=== PATIENT | female | born 1990 | race Two or more races ===

== ENCOUNTER 2024-06-10 11:39 | Emergency (ER) | payer OTHER ==
[2024-06-10 12:19] LABS: Urine Bacteria None Seen /hpf (None Seen)
[2024-06-10 12:39] LABS: Urine Blood 3+ /uL (Negative); Urine Clarity Turbid (Clear); Urine Color Yellow (Yellow); Urine Mucus FEW (None Seen); Urine Protein, UAD TRACE (Negative); Urine Specific Gravity 1.031 (1.001-1.035); Urine Urobilinogen Normal (Negative); Urine WBC 7 /hpf (0 - 5)
[2024-06-10 12:42] LABS: Basophils # (auto) 0.1 10 ^3/uL (0-0.2); Basophils % (auto) 0.9 % (0.0-2.0); Eosinophils # (auto) 0.3 10 ^3/uL (0-0.8); Eosinophils % (auto) 3.7 % (0.0-7.0); Hematocrit 44.9 % (36.0-46.0); Hemoglobin 15.2 g/dL (12.2-16.2); Lymphocytes # (auto) 2.7 10 ^3/uL (0.4-5.4); Lymphocytes % (auto) 33.2 % (10.0-50.0); Mean Corpuscular Hgb Conc. 33.7 g/dL (32.0-36.0); Mean Corpuscular Volume 91.9 fL (80.0-100.0); Monocytes # (auto) 0.5 10 ^3/uL (0-1.3); Monocytes % (auto) 6.3 % (0.0-12.0); Neutrophils # (auto) 4.5 10 ^3/uL (1.6-8.6); Neutrophils % (auto) 55.9 % (37.0-80.0); Nucleated Red Blood Cells % 0.1 %; Platelet Count (auto) 264 10^3/uL (140-450); Red Blood Cells 4.89 10^6/uL (4.0-5.20); Red Cell Distribution Width 13.1 % (11.8-14.3); White Blood Cell 8.1 10^3/uL (4.4-10.8)
[2024-06-10 12:53] LABS: Sodium 142 mmol/L (136-145)
[2024-06-10 12:54] LABS: Anion Gap 8 (5-15); Carbon Dioxide 27 mmol/L (20-31)
[2024-06-10 12:55] LABS: Calcium 10.2 mg/dL (8.7-10.4)
[2024-06-10 12:59] LABS: BUN/Creatinine Ratio 9.5 (10.0-20.0); Glucose 94 mg/dL (74-106)
[2024-06-10 13:00] LABS: Chloride 107 mmol/L (98-107)
[2024-06-10 13:01] LABS: Blood Urea Nitrogen 9 mg/dL (9-23)
[2024-06-10 13:13] LABS: INR 1.03 (0.9-1.15); Partial Thromboplastin Time 27.3 SEC (24.5-34.5); Prothrombin Time 10.9 sec (9.3-11.8)
--- NOTE | 2024-06-10 14:06 | DVH ---
OB ULTRASOUND <14 WEEKS: HISTORY: vb TECHNIQUE: Multiple real-time grayscale sonographic images of the pelvis with duplex Doppler color f low, spectral and M-mode analysis. TRANSDUCERS: Transabdominal and transvaginal FINDINGS: The uterus measures 8.83 x 4.48 by 4.06 cm. Endometrial canal measures 4.1 mm there is fluid in the cul-de-sac. Right ovary measures 3.5 x 2.13 x 2.4 cm. with normal Doppler color flow. Right ovarian volume is 9.3 8 cc Left ovary has been surgically removed. IMPRESSION: 1. No IUP noted at this time. 2. Right ovary appears normal 3. Left ovary is surgically removed.
--- NOTE | 2024-06-10 15:32 | ED.PDOC ---
History of Present Illness HPI Comments 34-year-old female with a history of hypertension, anxiety, and obesity presents to the ED with complaint of abnormal vaginal bleeding and nonradiating, suprapubic abdominal pain for the past 11 days, today. Patient reports sudden and unprovoked onset of symptoms following her last normal menstrual cycle, wh ich ended 1 week ago. She describes pain as sharp in quality. Patient reports possible . She denies having any nausea, vomiting, urinary symptoms, weakness, lightheadedness, or other associated symptoms or modifiers at this time. Chief Complaint: Vaginal Bleed Time Seen by MD: 15:15 Reviewed Notes: Nurses Notes, Medications, Allergies Allergies: Coded Allergies: NO KNOWN ALLERGIES (Unverified , 06/10/24) Information Source: Patient Mode of Arrival: Ambulatory Severity: Moderate Timing: Days Duration: Since onset Prehospital treatment: None Past Medical History PAST MEDICAL HISTORY: Anxiety, HTN Past Medical History (Other): obesity Surgical History (Other): Left oophorectomy [employer] History: Ovarian Cysts Family History Family History: Unknown Social History Smoker: Non-Smoker Alcohol: Denies ETOH Use Drugs: Denies Drug Use Lives In: Home Gastrointestinal: reports: abdominal pain Genitourinary: reports: abnormal vagina bleeding All Other Systems: Reviewed and Negative (negative unless otherwise stated above or in HPI) Physical Exam General Appearance: No Apparent Distress HEENT: Other (Unremarkable) Neck: Full Range of Motion, Normal Inspection Respiratory: Lungs Clear, No Accessory Muscle Use, No Respiratory Distress, Normal Breath Sounds Cardiovascular: No Edema, No JVD, Regular Rate/Rhythm Breast Exam: Deferred Gastrointestinal: Soft, Suprapubic, Tenderness Genitalia: Deferred Pelvic: Deferred Rectal: Deferred Extremities: Normal inspection, Normal range of motion, Non-tender, No pedal edema Neurologic: Alert, Normal Affect, Normal Mood, Other (Ambulatory without difficulty. No gross focal deficit.) Cerebellar Function: NOT DONE Reflexes: NOT DONE Skin: Dry, Normal Color, Warm Lymphatic: NOT DONE Was a procedure done? Was a procedure done?: No Differential Dx Considerations may include: , menorrhagia, dysmenorrhea, anemia, miscarriage, ectopic , among others X-Ray, Labs, Meds, VS Vital Signs Date Time Temp Pulse Resp B/P (MAP) Pulse Ox O2 Delivery O2 Flow Rate FiO2 06/10/24 15:55 76 17 98 Room Air 06/10/24 15:55 98.1 76 17 131/75 (93) 98 98.1 Lab Test 06/10/24 12:15 06/10/24 11:59 Range/Units White Blood Count 8.1 4.4-10.8 10^3/uL Red Blood Count 4.89 4.0-5.20 10^6/uL Hemoglobin 15.2 12.2-16.2 g/dL Hematocrit 44.9 36.0-46.0 % Mean Corpuscular Volume 91.9 80.0-100.0 fL Mean Corpuscular Hemoglobin 31.0 28.0-32.0 pg Mean Corpuscular Hemoglobin Concent 33.7 32.0-36.0 g/dL Red Cell Distribution Width 13.1 11.8-14.3 % Platelet Count 264 140-450 10^3/uL Mean Platelet Volume 8.1 6.9-10.8 fL Neutrophils (%) (Auto) 55.9 37.0-80.0 % Lymphocytes (%) (Auto) 33.2 10.0-50.0 % Monocytes (%) (Auto) 6.3 0.0-12.0 % Eosinophils (%) (Auto) 3.7 0.0-7.0 % Basophils (%) (Auto) 0.9 0.0-2.0 % Neutrophils # (Auto) 4.5 1.6-8.6 10 ^3/uL Lymphocytes # (Auto) 2.7 0.4-5.4 10 ^3/uL Monocytes # (Auto) 0.5 0-1.3 10 ^3/uL Eosinophils # (Auto) 0.3 0-0.8 10 ^3/uL Basophils # (Auto) 0.1 0-0.2 10 ^3/uL Nucleated Red Blood Cells 0.1 % Prothrombin Time 10.9 9.3-11.8 sec Prothrombin Time INR 1.03 0.9-1.15 Activated Partial Thromboplast Time 27.3 24.5-34.5 SEC Sodium Level 142 136-145 mmol/L Potassium Level 4.0 3.5-5.1 mmol/L Chloride Level 107 98-107 mmol/L Carbon Dioxide Level 27 20-31 mmol/L Anion Gap 8 5-15 Blood Urea Nitrogen 9 9-23 mg/dL Creatinine 0.95 0.550-1.02 mg/dL Glomerular Filtration Rate Calc 80 >90 mL/min BUN/Creatinine Ratio 9.5 L 10.0-20.0 Serum Glucose 94 74-106 mg/dL Calcium Level 10.2 8.7-10.4 mg/dL Beta HCG, Quantitative 17.5 H 1.5-4.2 mIU/mL Urine Color Yellow Yellow Urine Clarity Turbid H Clear Urine pH 6.0 5.0-9.0 Urine Specific [place] 1.031 1.001-1.035 Urine Protein Trace H Negative Urine Ketones Negative Negative Urine Blood 3+ H Negative /uL Urine Nitrite Negative Negative Urine Bilirubin Negative Negative Urine Urobilinogen Normal Negative mg/dL Urine Leukocyte Esterase Negative Negative /uL Urine RBC 4 0 - 4 /hpf Urine WBC 7 0 - 5 /hpf Urine Squamous Epithelial Cells Few <5 /hpf Urine Bacteria None seen None Seen /hpf Urine Mucus Few None Seen Urine Glucose Normal Normal mg/dL [place] [address] Ph: [phone] DIAGNOSTIC IMAGING Diagnostic Imaging Report : [id number] Signed PATIENT: YASEMIN DRAKE ACCT: [id number] UNIT: [id number] : 1990 LOC: ER ROOM / BED: / AGE / SEX: 34 / F ADM STATUS: REG ER SERVICE 1219 ORDERING PHYSICIAN: CHUCKY GIRALDO MD PROCEDURE(s): OB4US - OB ULTRASOUND COMP LESS 14WKS REASON: vb ORDER NUMBER(s): [id number], ACCESSION NUMBER(s): [id number] OB ULTRASOUND <14 WEEKS: HISTORY: vb TECHNIQUE: Multiple real-time grayscale sonographic images of the pelvis with duplex Doppler color flow, spectral and M-mode analysis. TRANSDUCERS: Transabdominal and transvaginal FINDINGS: The uterus measures 8.83 x 4.48 by 4.06 cm. Endometrial canal measures 4.1 mm there is fluid in the cul-de-sac. Right ovary measures 3.5 x 2.13 x 2.4 cm. with normal Doppler color flow. Right ovarian volume is 9.38 cc Left ovary has been surgically removed. IMPRESSION: 1. No IUP noted at this time. 2. Right ovary appears normal 3. Left ovary is surgically removed. ATED BY: WILBERT VASQUEZ Jr., DO DICTATED DATE/TIME: 06/10/241402 SIGNED BY: WILBERT VASQUEZ Jr., SIGNED DATE/TIME: 06/10/241402 CC: X-Ray, Labs, Meds, VS Comment 34-year-old female with history of hypertension, ovarian cysts and left oophorectomy complaining of suprapubic pain and vaginal bleeding for the last 11 days Exam remarkable for suprapubic tenderness Ob ultrasound: IMPRESSION: 1. No IUP noted at this time. 2. Right ovary appears normal 3. Left ovary is surgically removed. CBC, basic metabolic panel, coagulation panel and UA unremarkable for any abnormality of acute significance HCG 17.5 On re-evaluation, patient is well-appearing, declines any pain medication, appears hemodynamically stable. Patient advised regarding workup findings, my impression, treatment plan and follow up recommendations, specifically to follow up with her OBGYN within the next 2-3 days for repeat serum quantitative hCG and repeat ultrasound. She expressed understanding and agreed. Findings likely reflect recent miscarriage, however could reflect early normal with bleeding. Ectopic cannot be ruled out. Time of 1ST Reevaluation: 15:45 Reevaluation 1ST: Unchanged Patient Education/Counseling: Diagnosis, Treatment Family Education/Counseling: No Family Present Additional Information The following tests were ordered, and results were reviewed by me: urine test, Beta Quant, UA, PTPTT, BMP, CBC, OB US Additional information was gathered from interviewing the following independent historians: spouse I reviewed and agreed with the following test results read by other providers: OB US I discussed treatments and results with medical personnel and: spouse Departure 1 Departure Time of Disposition: 15:41 Impression: Primary Impression: Vaginal bleeding affecting early Disposition: 01 HOME / SELF CARE / HOMELESS Condition: Stable Additional Instructions: Your blood tests were unremarkable. Your serum quantitative hCG ( hormone) was 17.5 mIU/mL. Your ultrasound did not show a inside the uterus or any other acute abnormality. The report is below. This likely reflects a recent miscarriage, however could reflect an early normal with bleeding or a outside the uterus (ectopic ). Follow up with your OBGYN in 3 days to 1 week for repeat serum quantitative hCG and repeat ultrasound. Take [id number] Tylenol as needed for pain. [facility] [address] [facility] [address] Ph: [phone] DIAGNOSTIC IMAGING Diagnostic Imaging Report : [id number] Signed PATIENT: YASEMIN DRAKE ACCT: [id number] UNIT: [id number] : 1990 LOC: ER ROOM / BED: / AGE / SEX: 34 / F ADM STATUS: REG ER SERVICE 1219 ORDERING PHYSICIAN: CHUCKY GIRALDO MD PROCEDURE(s): OB4US - OB ULTRASOUND COMP LESS 14WKS REASON: vb ORDER NUMBER(s): [id number], ACCESSION NUMBER(s): [id number] OB ULTRASOUND <14 WEEKS: HISTORY: vb TECHNIQUE: Multiple real-time grayscale sonographic images of the pelvis with duplex Doppler color flow, spectral and M-mode analysis. TRANSDUCERS: Transabdominal and transvaginal FINDINGS: The uterus measures 8.83 x 4.48 by 4.06 cm. Endometrial canal measures 4.1 mm there is fluid in the cul-de-sac. Right ovary measures 3.5 x 2.13 x 2.4 cm. with normal Doppler color flow. Right ovarian volume is 9.38 cc Left ovary has been surgically removed. IMPRESSION: 1. No IUP noted at this time. 2. Right ovary appears normal 3. Left ovary is surgically removed. ATED BY: WILBERT VASQUEZ Jr. DO DICTATED DATE/TIME: 06/10/24 1403 Discharged With: Spouse Critical Care Note Critical Care Time?: No Stability Stability form required: No Heart Score Heart Score: Heart Score Response (Comments) Value History N/A 0 EKG N/A 0 Age N/A 0 Risk Factors N/A 0 Troponin N/A 0 Total 0 I personally scribed for CHUCKY GIRALDO MD ([email or web address]) on 06/10/24 at 15:32. Electronically submitted by Paulo Sibley ([email or web address]). CHUCKY GIRALDO MD Jun 10, 2024 15:32
[2024-06-10 15:55] VITALS: BP 131/75; PULSE 76; RESP 17; TEMP 98.1; O2SAT 98
== END 2024-06-10 15:57 | disposition home or self-care (01) ==
LOC: ER 11:39
DX: O20.8 Other hemorrhage in early pregnancy (principal); R10.2 Pelvic and perineal pain; O26.891 Other specified pregnancy related conditions, first trimester; I10 Essential (primary) hypertension; Z3A.00 Weeks of gestation of pregnancy not specified; Z98.890 Other specified postprocedural states
CPT/HCPCS: 36415; 76801; 76817; 80048; 81001; 84702; 85025; 85610; 85730